=== PATIENT | male | born 1990 | race American Indian/Alaskan Native ===

== ENCOUNTER 2018-03-25 22:39 | Emergency (ER) | payer SELFPAY ==
[2018-03-25 22:55] VITALS: BP 117/76; PULSE 86; RESP 20; TEMP 98.2; O2SAT 98
--- NOTE | 2018-03-25 23:16 | C.PDOC ---
History Of Present Illness 27 year old male presents to ED stating he is having reaction to medication given to him yesterday at [facility]. The patient states he was there for help with sleep, unable to sleep for 2 nights. He states they gave him an injection and he went home. Today he feels "weird" and still tired and unable to sleep. Denies any itching, difficulty breathing or swallowing. Time Seen by Provider: 03/25/18 23:05 Chief Complaint (Nursing): Medical Clearance History Per: Patient History/Exam Limitations: no limitations Past Medical History Reviewed: Historical Data, Nursing Documentation, Vital Signs Vital Signs: Last Vital Signs Temp 98.2 F 03/25/18 22:45 Pulse 86 03/25/18 22:45 Resp 20 03/25/18 22:45 BP 117/76 03/25/18 22:45 Pulse Ox 98 03/25/18 23:17 - Medical History PMH: No Chronic Diseases Family History: States: Unknown Family Hx - Social History Hx Alcohol Use: Yes Hx Substance Use: Yes - Immunization History Hx Tetanus Toxoid Vaccination: No Hx Influenza Vaccination: No Hx Pneumococcal Vaccination: No Review Of Systems Except As Marked, All Systems Reviewed And Found Negative. Physical Exam - Physical Exam Appears: No Acute Distress, Other (smoke smell, somnolent) Skin: Warm, Dry Head: Atraumatic, Normacephalic Eye(s): bilateral: PERRL, EOMI, Other (scleral injection) Nose: Normal Oral Mucosa: Moist Throat: Normal, No Erythema, No Exudate Neck: Normal ROM Chest: Symmetrical Cardiovascular: Rhythm Regular, No Murmur Respiratory: Normal Breath Sounds, No Wheezing Extremity: Normal ROM, No Tenderness, No Deformity ED Course And Treatment O2 Sat by Pulse Oximetry: 98 Medical Decision Making Medical Decision Making: Patient complains of "weird" reaction to unknown drug. He admits to smoking marijuana and denies any other drug use, no alcohol smell on breath. Patient was observed to sleep in ED over an hour. Patient easily aroused and stable to be discharged. Will try to contact family to pick him up. Disposition Counseled Patient/Family Regarding: Diagnosis, Need For Followup - Disposition Referrals: [facility] [Outside] Disposition: HOME/ ROUTINE Disposition Time: 00:30 Condition: STABLE Instructions: Bedtime Struggles - POA Present On Arrival: None - Clinical Impression Clinical Impression: Medical assessment, Poor sleep pattern, Cannabis use disorder, mild, abuse
== END 2018-03-26 00:36 | disposition home or self-care (01) ==
LOC: C.ER 22:39
DX: F12.10 Cannabis abuse, uncomplicated (principal); G47.8 Other sleep disorders